=== PATIENT | male | born 1995 | race Caucasian/White ===

== ENCOUNTER 2025-05-05 01:48 | Emergency (ER) | payer SELFPAY ==
[2025-05-05] MEDS ORDERED: Sodium Chloride 0.9% 2.5 ML Syringe FLUSH PRN (01:58)
[2025-05-05] MEDS ORDERED: Sodium Chloride 0.9% 10 ML Syringe FLUSH PRN (01:58)
[2025-05-05 02:03] LABS: BASOPHILS ABSOLUTE AUTO 0.01 K/uL (0.00-0.20); BASOPHILS PERCENT AUTO 0.2 % (0.0-1.0); EOSINOPHILS ABSOLUTE AUTO 0.08 K/uL (0.00-0.45); EOSINOPHILS PERCENT AUTO 1.4 % (0.0-6.0); IMMATURE GRAN ABSOLUTE AUTO 0.02 K/uL (0.00-0.05); IMMATURE GRAN PERCENT AUTO 0.4 % (0.0-0.4); LYMPHOCYTES ABSOLUTE AUTO 1.72 K/uL (1.00-4.80); LYMPHOCYTES PERCENT AUTO 30.5 % (24.0-44.0); MEAN PLATELET VOLUME 9.8 fL (9.4-12.4); MONOCYTES ABSOLUTE AUTO 0.55 K/uL (0.00-0.80); MONOCYTES PERCENT AUTO 9.8 % (0.0-8.0); NEUTROPHILS ABSOLUTE AUTO 3.26 K/uL (1.80-7.70); NEUTROPHILS PERCENT AUTO 57.7 % (41.0-71.0); NRBC ABSOLUTE 0.00 K/uL (0.00-0.02); NRBC PERCENT 0.0 /100WBC (0.0-0.2); PLATELET COUNT,PLT 257 K/uL (150-400); RED BLOOD CELL COUNT 5.25 M/uL (4.52-5.90); WHITE BLOOD CELL COUNT,WBC 5.64 K/uL (3.9-11.3)
[2025-05-05 02:36] LABS: BLOOD UREA NITROGEN,BUN 21.0 mg/dL (7.0-18.0); CARBON DIOXIDE,CO2 26.9 mmol/L (21.0-32.0); CHLORIDE,CL 103.0 mmol/L (98-107); CREATININE 1.2 mg/dL (0.8-1.3); EST CRCL DRUG DOSING (CG) 87.08 mL/min; GLUCOSE RANDOM 84.0 mg/dL (74-106); POTASSIUM,K 3.8 mmol/L (3.5-5.1); SODIUM,NA 139.0 mmol/L (136-148)
[2025-05-05 02:48] LABS: ESTIMATED GFR 83.0 mL/min (>60)
== END 2025-05-05 03:40 | disposition home or self-care (01) ==
LOC: MW.ED 01:48
DX: R07.89 Other chest pain (principal); Z88.8 Allergy status to other drugs, medicaments and biological substances
CPT/HCPCS: 36415; 71045; 71045-26; 80048; 84484; 85025; 93005; 99285